=== PATIENT | male | born 1985 | race Two or more races ===

== ENCOUNTER 2021-10-30 23:41 | Emergency (ER) | payer OTHER ==
[2021-10-31 00:22] VITALS: BMI 26.6
[2021-10-31] MEDS ORDERED: FAMOTIDINE 20 MG/50 ML IVPB 20 MG/50 ML MG IVPB ONE (01:04)
[2021-10-31] MEDS ORDERED: FAMOTIDINE 10 MG/ML VIAL IVPB ONE (01:11)
[2021-10-31 03:04] VITALS: BP 139/74; PULSE 77; TEMP 98.3
== END 2021-10-31 03:27 | disposition home or self-care (01) ==
LOC: JER 23:41
PROC: 3E033NZ Introduction of Analgesics, Hypnotics, Sedatives into Peripheral Vein, Percutaneous Approach (ICD-10-PCS; principal; 2021-10-31)
PROC: 3E033GC Introduction of Other Therapeutic Substance into Peripheral Vein, Percutaneous Approach (ICD-10-PCS; 2021-10-31)
DX: L50.9 Urticaria, unspecified (principal)
CPT/HCPCS: 93005; 93010; 99284-25